=== PATIENT | male | born 2005 | race Hispanic/Latino ===

== ENCOUNTER 2023-10-23 10:13 | Emergency (ER) | payer OTHER ==
[~2023-10-23] VITALS: Ht 167.6 cm; Wt 114.8 kg
[2023-10-23 10:19] VITALS: BP 151/92; PULSE 112; RESP 18
[2023-10-23] MEDS ORDERED: CLIN-141 PO (11:57)
[2023-10-23] MEDS ORDERED: IBUP-2077 PO (11:57)
[2023-10-23] MEDS ORDERED: CEFTRIAXONE 1G VIAL IM ONE (12:00)
[2023-10-23] MEDS ORDERED: IBUPROFEN 800 MG TAB PO ONE (12:00)
[2023-10-24] MEDS ORDERED: AMOX1TAB16 PO (22:28)
[2023-10-24] MEDS ORDERED: IBUP-1493 PO (22:28)
== END 2023-10-23 13:06 | disposition home or self-care (01) ==
LOC: EDH 10:13
DX: L05.91 Pilonidal cyst without abscess (principal); Z98.890 Other specified postprocedural states
CPT/HCPCS: 99283; 96372; J0696

== ENCOUNTER 2023-10-24 21:53 | Emergency (ER) | payer OTHER ==
[~2023-10-24] VITALS: Ht 170.2 cm; Wt 114.8 kg
[~2023-10-24 21:53] MED LIST: CLIN-141 PO; IBUP-2077 PO
[2023-10-24 21:54] VITALS: BP 114/91; PULSE 115; RESP 18
[2023-10-24] MEDS ORDERED: IBUP-1493 PO (22:28)
[2023-10-24] MEDS ORDERED: AMOX1TAB16 PO (22:28)
== END 2023-10-24 22:33 | disposition home or self-care (01) ==
LOC: EDH 21:53
DX: L05.01 Pilonidal cyst with abscess (principal)
CPT/HCPCS: 10080; 99282